=== PATIENT | female | born 1970 | race Caucasian/White ===

== ENCOUNTER 2019-01-31 05:55 | Day surgery (SDC) | payer BC ==
[~2019-01-31] VITALS: Ht 165.1 cm; Wt 84.4 kg
[~2019-01-31 05:55] MED LIST: FEXO180T81 PO; LEVO100T PO
[2019-01-31] MEDS ORDERED: ACETAMINOPHEN 500 MG TABLET PO ONE ×2 (06:00→07:15)
[2019-01-31] MEDS ORDERED: BUPIVACAINE-EPI 0.25%-1:200000 MPF 30 ML VIAL. INJ ONE (06:30)
[2019-01-31] MEDS ORDERED: SURGICEL HEMOSTAT 4X8 EACH. ONE (06:57)
[2019-01-31] MEDS ORDERED: IOHEXOL 300 MG/ML 50 ML VIAL. ONE (06:57)
[2019-01-31] MEDS ORDERED: ONDANSETRON PF 4 MG/2 ML VIAL. IV PRN (07:00)
[2019-01-31] MEDS ORDERED: SCOPOLAMINE 1.5MG PATCH. TD ONE (07:00)
[2019-01-31] MEDS ORDERED: PROCHLORPERAZINE 10 MG/2 ML VIAL. IV PRN (07:00)
[2019-01-31] MEDS ORDERED: IV RINGERS,LACTATED 1000ML 1,000 ML IV SCH ×2 (07:00)
[2019-01-31] MEDS ORDERED: LIDOCAINE 1% PF 2 ML VIAL. ID PRN (07:00)
[2019-01-31] MEDS ORDERED: HYDROmorphone 2 MG/ML VIAL IV PRN (07:00)
[2019-01-31] MEDS ORDERED: MORPHINE SULFATE 2 MG/ML VIAL. IV PRN (07:00)
[2019-01-31] MEDS ORDERED: fentaNYL PF VIAL 100 MCG/2 ML VIAL IV PRN ×2 (07:00)
[2019-01-31] MEDS ORDERED: fentaNYL PF VIAL 250 MCG/5 ML VIAL ONE (07:12)
[2019-01-31] MEDS ORDERED: ROCURONIUM 50 MG/5 ML VIAL. ONE (07:12)
[2019-01-31] MEDS ORDERED: MIDAZOLAM HCL/PF 2 MG/2 ML VIAL. ONE (07:13)
[2019-01-31] MEDS ORDERED: DEXAMETHASONE SOD PHOS 4 MG/ML VIAL ONE (08:18)
[2019-01-31] MEDS ORDERED: PROPOFOL 20 ML IV ONE (08:18)
[2019-01-31] MEDS ORDERED: LIDOCAINE 2% PF 5 ML VIAL. ONE (08:18)
[2019-01-31] MEDS ORDERED: NEOSTIGMINE METHYLSULFATE 5 MG/5 ML SYRINGE. ONE (08:18)
[2019-01-31] MEDS ORDERED: ONDANSETRON PF 4 MG/2 ML VIAL. ONE (08:18)
[2019-01-31] MEDS ORDERED: SEVOFLURANE 31 TO 60 MINUTES. IH ONE (08:19)
[2019-01-31] MEDS ORDERED: GLYCOPYRROLATE 1 MG/5 ML VIAL. ONE (08:19)
--- NOTE | 2019-01-31 08:23 | PDOC4 ---
Operative Note Operative Note Date: 01/31/2019 Preoperative diagnosis: Chronic cholecystitis cholelithiasis Postoperative diagnosis: Same Procedure: Laparoscopic cholecystectomy Surgeon: Juan J Specimen: Gallbladder Dictation: Patient is 48-year-old female complained of right upper quadrant abdominal pain postprandial nausea and ultrasound showing gallstones. Procedure laparoscopic cholecystectomy was explained to the patient in detail risks benefits were also discussed including bleeding infection injury to intra- abdominal contents possibly necessitating further or open operations alternatives to this procedure also discussed with the patient who seemed to understand and gave both verbal and written consent had the procedure performed. Patient was taken to the operating room placed in supine position general anesthesia was initiated once patient was sleep and intubated her abdomen was prepped and draped usual sterile fashion using ChloraPrep. An area just below the umbilicus was injected with quarter percent Marcaine with epinephrine incision was made with 11 blade scalpel varies needle was placed within the abdomen creating pneumoperitoneum once this was complete 11 mm port was placed and a 5 mm camera was placed within the abdomen which was inspected no other abnormalities were noted. A 5 mm port was placed in the epigastrium a 5 mm port was placed in the right lateral abdomen and a 5 mm port in the right mid abdomen. The dome of the gallbladder is grasped retracted cephalad the infundibulum of the gallbladder is grasped retracted laterally exposing the triangle. The adherent tissues the triangle were taken down bluntly dissection exposing the cystic duct and cystic artery both were doubly clipped and transected the gallbladder was taken off the liver with hook electrocautery placed in Endo Catch bag and removed from the umbilicus. The right upper quadr ant was irrigated and suctioned dry hemostasis deemed to be appropriate and the pneumoperitoneum was reduced all ports removed fascial defect at the umbilicus was closed with a [id number] 0 Vicryl suture and the skin was approximated all port sites with for septic and a Monocryl Mastisol Steri-Strips and island dressings were applied. Patient was awakened and bated in the operating room taken to recovery in stable condition all sponge instrument needle counts listed as correct estimated blood loss 5 mL ARCHIE MILLER MD Jan 31, 2019 08:23
--- NOTE | 2019-01-31 08:25 | DISCH ---
DISCHARGE INSTRUCTIONS Condition on Discharge Condition on Discharge: Stable Activity After Discharge Activity Instructions for Disc: Avoid exertion Other activity instructions: no lifting more than 20 pounds for 2 weeks Diet after Discharge Diet after Discharge: Low Fat Wound Incision Care Other wound/incision instructi: a shower in 24 hours Contacting the after DC Call your doctor for: If your condition worsens Follow-Up Follow up with: Dr. Miller in 2 weeks ARCHIE MILLER MD Jan 31, 2019 08:25
[2019-01-31] MEDS ORDERED: PROCHLORPERAZINE 10 MG/2 ML VIAL. ONE (08:42)
[2019-01-31] MEDS ORDERED: fentaNYL PF VIAL 100 MCG/2 ML VIAL ONE (08:42)
[2019-01-31] MEDS ORDERED: OXYC1TAB15 PO (08:59)
[2019-01-31] MEDS ORDERED: oxyCODONE/APAP 5/325 1 TAB TABLET ONE (09:23)
[2019-01-31] MEDS ORDERED: oxyCODONE/APAP 5/325 1 TAB TABLET PO ONE (09:30)
[2019-01-31 10:00] VITALS: BP 118/65
--- NOTE | 2019-02-03 16:06 | PATHOLOGY ---
[facility] Accession Number: [id number] . 01 Material submitted: . gallbladder - GALLBLADDER . 01 Clinical history: . Cholecystitits. . 02 Diagnosis: Gallbladder, laparoscopic cholecystectomy: - Cholelithiasis. - Chronic cholecystitis. - Adenomyosis of gallbladder fundus, focal. ([facility]; 02/03/2019) QMS 02/03/2019 1025 Local . 02 Comment: There is no evidence of malignancy. . 02 Electronically signed: . Claudio Mcgowan MD, Pathologist NPI- [id number] . 01 Gross description: . Received in formalin labeled "Elsa Roa, gallbladder" is an intact cholecystectomy specimen measuring 7.6 x 3.0 x 2.8 cm. The serosa is vilchis-green and smooth and the specimen is opened to reveal dark green velvety mucosa without polyps or masses. The average wall thickness is 0.1 cm. There is a firm thickened area in the fundus measuring 1.0 cm in greatest dimension. Calculi are present, which are vilchis-green, gritty, and measure in aggregate 1.5 x 1.5 x 0.5 cm, ranging from 0.1-0.3 cm in greatest dimension. [employer] sections of the fundus and body and the cystic duct margin are submitted in A1. ([facility] [place]; 02/02/2019) [facility] 02/02/2019 0957 Local . 02 Pathologist provided ICD-10: K80.10 . 02 CPT . 979268 Specimen Comment: A courtesy copy of this report has been sent to [phone], [phone] Specimen Comment: [id number] Specimen Comment: Report sent to / DR ESCAMILLA Performed at: 01 [facility] [id number] [facility] [address], [place], [place] [id number] MD Perez Willis MD Phone: [phone] Performed at: 02 [facility] [address] [place], [place] [id number] MD Claudio Mcgowan MD Phone: [phone]
== END 2019-01-31 10:24 | disposition home or self-care (01) ==
LOC: SURG 05:55
PROVIDERS: ATTEND Surgery
DX: K80.10 Calculus of gallbladder with chronic cholecystitis without obstruction (principal); K82.8 Other specified diseases of gallbladder; E03.9 Hypothyroidism, unspecified; Z98.890 Other specified postprocedural states; Z87.891 Personal history of nicotine dependence; Z72.89 Other problems related to lifestyle; J45.909 Unspecified asthma, uncomplicated
CPT/HCPCS: 47562; 81025; A7015; J0696; J0780; J1100; J2001; J2250; J2405; J2704; J2710; J3010; J3490; J7030; 88304; Q9967